=== PATIENT | female | born 1945 | race Caucasian/White ===

== ENCOUNTER 2018-11-17 16:52 | Emergency (ER) | payer MEDICARE, OTHER ==
[2018-11-17 17:17] VITALS: O2SAT 97
[2018-11-17] MEDS ORDERED: NORCO 5/325 MG PO ONE (17:19)
[2018-11-17] MEDS ORDERED: NORCO 5/325 MG ONE (17:22)
--- NOTE | 2018-11-17 17:24 | ERPHSYRPT ---
- History of Present Illness Time Seen by Provider: 11/17/18 17:20 Source: patient Exam Limitations: no limitations Patient Subjective Stated Complaint: patient states tripped over leg of jewelry box this am and fell against corner of dresser injuring right rib area. Triage Nursing Assessment: ambulated to room per self guarding right rib area. skin w/d, color normal, resp shallow but nonlabored. small bruise noted to right lateral rib area. ice applied. Physician History: 73-year-old white female arrives with complaint of pain in her posterior right ribs with breathing and moving symptoms since 11:30. She states she tripped and struck her right ribs She is having pain in the right posterior ribs and lateral ribs worse with moving and breathing she is not short of breath. Past medical history includes hypercholesterolemia, high blood pressure, osteoporosis, breast cancer, herniated disc. Past surgical history includes right ankle replacement Timing/Duration: today (11:30 AM) Severity: moderate Modifying Factors: Improves With: movement, other (breathing) Associated Symptoms: other (pain right posterior ribs), No nausea, No vomiting, No abdominal pain, No shortness of breath, No heartburn, No diaphoresis, No cough, No chills, No chest pain, No fever, No headaches, No loss of appetite, No malaise, No rash, No syncope, No seizure, No weakness Allergies/Adverse Reactions: Penicillins Allergy (Unknown, Verified 11/17/18 17:14) Sulfa (Sulfonamide Antibiotics) Allergy (Unknown, Verified 10/04/15 01:58) Home Medications: Aspirin 81 mg PO DAILY 10/04/15 [History] Diclofenac Sodium 50 mg [Voltaren 50 mg] 75 mg PO DAILY 10/04/15 [History] Hydrochlorothiazide 25 mg [hydroDIURIL 25 MG] 25 mg PO DAILY 10/04/15 [ History] Levothyroxine Sodium 50 Mcg [Synthroid 50 Mcg] 50 mcg PO DAILY 10/04/15 [ History] Melatonin/Pyridoxine HCl (B6) [Melatonin 5 mg Tablet] 1 tab PO HS 10/04/15 [ History] Metoprolol Tartrate 100 mg PO DAILY 10/04/15 [History] Mv-Min/FA/Vit K/Lycop/Lut/Zeax [Ocuvite Eye + Multi Tablet] 1 cap PO DAILY 10/03 [History] Gabapentin 300 mg PO HS 11/17/18 [History] hydroCHLOROthiazide [Hydrochlorothiazide] 25 mg PO DAILY 11/17/18 [History] Hx Tetanus, Diphtheria Vaccination/Date Given: No Hx Influenza Vaccination/Date Given: No Hx Pneumococcal Vaccination/Date Given: No - Review of Systems Constitutional: No Fever, No Chills Eyes: No Symptoms Ears, Nose, & Throat: No Symptoms Respiratory: No Cough, No Dyspnea Cardiac: No Chest Pain, No Edema, No Syncope Abdominal/Gastrointestinal: No Abdominal Pain, No Nausea, No Vomiting, No Diarrhea Genitourinary Symptoms: No Symptoms, No Dysuria Musculoskeletal: Back Pain (pain right posterior ribs) Skin: No Rash Neurological: No Dizziness, No Focal Weakness, No Sensory Changes Psychological: No Symptoms Endocrine: No Symptoms All Other Systems: Reviewed and Negative - Past Medical History Pertinent Past Medical History: Yes Neurological History: No Pertinent History ENT History: No Pertinent History Cardiac History: Hypertension Respiratory History: No Pertinent History Endocrine Medical History: Hypothyroidism Musculoskeletal History: Arthritis GI Medical History: No Pertinent History History: No Pertinent History Psycho-Social History: No Pertinent History Female Reproductive Disorders: Breast Cancer Other Medical History: R TAA - Past Surgical History Past Surgical History: Yes Neuro Surgical History: No Pertinent History Cardiac: No Pertinent History Respiratory: No Pertinent History Gastrointestinal: No Pertinent History Genitourinary: No Pertinent History Musculoskeletal: Orthopedic Surgery, Other Female Surgical History: No Pertinent History Other Surgical History: RIGHT ANKLE REPLACEMENT - Social History Smoking Status: Never smoker Exposure to second hand smoke: No Drug Use: none Patient Lives Alone: No - Female History Hx Now: No - Nursing Vital Signs Nursing Vital Signs: Initial Vital Signs Temperature 97.5 F 11/17/18 17:04 Pulse Rate 64 11/17/18 17:04 Respiratory Rate 16 11/17/18 17:04 Blood Pressure 175/78 11/17/18 17:04 O2 Sat by Pulse Oximetry 97 11/17/18 17:04 Pain Scale Pain Intensity 8 - Physical Exam General Appearance: mild distress, alert Eye Exam: PERRL/EOMI, eyes nml inspection Ears, Nose, Throat Exam: normal ENT inspection, TMs normal, pharynx normal, moist mucous membranes Neck Exam: normal inspection, non-tender, supple, full range of motion Respiratory Exam: normal breath sounds, lungs clear, No respiratory distress Cardiovascular Exam: regular rate/rhythm, normal heart sounds, normal peripheral pulses, capillary refill <2 sec Gastrointestinal/Abdomen Exam: soft, normal bowel sounds, No tenderness, No mass Back Exam: other (pain in right posterior ribs with palpation and movement) Extremity Exam: normal inspection, normal range of motion, pelvis stable Neurologic Exam: alert, oriented x 3, cooperative, 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, normal mood/affect, nml cerebellar function, nml station & gait, sensation nml, No motor deficits Skin Exam: normal color, warm, dry, other (small ecchymosis right lateral abdomen nontender), No rash Lymphatic Exam: No adenopathy SpO2 Interpretation: normal (97%) SpO2: 97 - Course Nursing assessment & vital signs reviewed: Yes - Radiology Exams Right Ribs X-ray Interpretation: Interpreted by me (no fractures) Chest X-ray Interpretation: Interpreted by me (no acute disease process, no rib fractures, no pneumothorax) Ordered Tests: Active Orders 24 hr Category Date Time Status CHEST 1 VIEW (PORTABLE) Stat Exams 11/17/18 17:20 Taken RIBS UNILATERAL Stat Exams 11/17/18 17:43 Taken Medication Summary Discontinued Medications Generic Name Dose Route Start Last Admin Trade Name Yonatan PRN Reason Stop Dose Admin Hydrocodone Bitart/Acetaminophen 1 tab 11/17/18 17:19 11/17/18 17:23 [place] 5/325 Mg PO 11/17/18 17:20 1 tab STAT ONE Administration Hydrocodone Bitart/Acetaminophen Confirm 11/17/18 17:22 [place] 5/325 Mg Administered 11/17/18 17:23 Dose 1 tab .ROUTE .STK-MED ONE - Progress Progress: improved Progress Note: 11/17/18 17:58 Patient feeling better after [place] 5/325 one orally. X-ray right ribs no fractures (my read and ). X-ray chest no acute disease process, no fractures, no pneumothorax (my read). Will discharge patient with [place] for pain. - Departure Departure Disposition: Home Clinical Impression: Accidental fall Qualifiers: Encounter type: initial encounter Qualified Code(s): W19.XXXA - Unspecified fall, initial encounter Contusion of rib on right side Qualifiers: Encounter type: initial encounter Qualified Code(s): S20.211A - Contusion of right front wall of thorax, initial encounter Condition: Fair Critical Care Time: No Referrals: [place] GRIG[facility] [Primary Care Provider] - Instructions: Bruised Rib Additional Instructions: Return home. Cold packs to area 24-48 hours. [place] as prescribed. Followup with your family Dr. if symptoms are worse, no better in 48 hours, or persist longer than one week. Return for acute distress severe symptoms or for any problems. Prescriptions: Hydrocodone/APAP 5-325 Tab^^^ [[place] 5-325 Tablet^^^] 1 each PO Q4HPRN PRN #12 tablet MDD 6 PRN Reason: rib pain
[2018-11-17 18:04] VITALS: BP 167/75; PULSE 57
--- NOTE | 2018-11-18 08:58 | XRAY ---
Indication: Pain following injury. History of breast cancer. Comparison: None 2 views of the right ribs demonstrates nondisplaced fracture lateral arc of the 6th rib. Elsewhere mild multilevel degenerative spondylosis, moderate right AC degenerative arthropathy, and minimal double curvature thoracolumbar scoliosis. Chest reported separately. Comment: Fracture not reported on preliminary interpretation by the ER clinician. Telephone report given to Dr. Curran at 0853 hrs. on November 18, 2018.
--- NOTE | 2018-11-18 09:00 | XRAY ---
Indication: Right-sided chest pain following injury. Comparison: February 05, 2012. PA/lateral chest again demonstrates normal heart and lungs with focal eventration of the right hemidiaphragm. Bony thorax intact again with mild degenerative changes and minimal scoliosis. Right ribs reported separately.
== END 2018-11-17 18:10 | disposition home or self-care (01) ==
LOC: ED 16:52
DX: S20.211A Contusion of right front wall of thorax, initial encounter (principal); W01.190A Fall on same level from slipping, tripping and stumbling with subsequent striking against furniture, initial encounter
CPT/HCPCS: 71045; 71100; 99284; A9270-GY

== ENCOUNTER 2018-12-14 20:33 | Emergency (ER) | payer MEDICARE, OTHER ==
[2018-12-14] MEDS ORDERED: Sodium Chloride 0.9% 1000 ML 0 ML ONE (21:30)
--- NOTE | 2018-12-14 21:30 | ERPHSYRPT ---
- History of Present Illness Time Seen by Provider: 12/14/18 21:10 Historian: patient Patient Subjective Stated Complaint: pt reports abd pain starting today around 1530. pt states she had been constipated prior to today for a couple days and took some miralax this morning. pt states she had diarrhea 3-4 times today with chills around 1530 as well. pt reports pain to the lower abdomen as well as a churning sensation. pt reports she feels better after having a bowel movement. Triage Nursing Assessment: pt is aox3, pupils perrl, afebrile, resps easy and non labored, radial pulses strong and equal, cap refill < 3 seconds, abd soft, tender to the lower quadrants, bowel sounds present normoactive x4, pt skin pink warm dry. Physician History: right upper abdominal pain that began in the morning of 12/14/2018. Timing/Duration: today Activities at Onset: none Quality: aching, stabbing Abdominal Pain Onset Location: RUQ Pain Radiation: flank Severity of Pain-Max: severe Severity of Pain-Current: mild Modifying Factors: Improves With: nothing Associated Symptoms: No back, No chest pain, No diaphoresis, No diarrhea, No fever/chills, No fatigue, No headache, No heartburn, No loss of appetite, No nausea, No neck pain, No rash, No shortness of breath, No syncope, No vomiting, No weakness Previous symptoms: no prior history Allergies/Adverse Reactions: Penicillins Allergy (Unknown, Verified 11/17/18 17:14) Sulfa (Sulfonamide Antibiotics) Allergy (Unknown, Verified 10/04/15 01:58) Home Medications: Aspirin 81 mg PO DAILY 10/04/15 [History] Diclofenac Sodium 50 mg [Voltaren 50 mg] 75 mg PO DAILY 10/04/15 [History] Hydrochlorothiazide 25 mg [hydroDIURIL 25 MG] 25 mg PO DAILY 10/04/15 [ History] Levothyroxine Sodium 50 Mcg [Synthroid 50 Mcg] 50 mcg PO DAILY 10/04/15 [ History] Melatonin/Pyridoxine HCl (B6) [Melatonin 5 mg Tablet] 1 tab PO HS 10/04/15 [ History] Metoprolol Tartrate 100 mg PO DAILY 10/04/15 [History] Mv-Min/FA/Vit K/Lycop/Lut/Zeax [Ocuvite Eye + Multi Tablet] 1 cap PO DAILY 10/03 [History] Gabapentin 300 mg PO HS 11/17/18 [History] hydroCHLOROthiazide [Hydrochlorothiazide] 25 mg PO DAILY 11/17/18 [History] Hx Tetanus, Diphtheria Vaccination/Date Given: No Hx Influenza Vaccination/Date Given: No Hx Pneumococcal Vaccination/Date Given: No Immunizations Up to Date: Yes - Review of Systems Constitutional: No Fever, No Chills Eyes: No Symptoms Ears, Nose, & Throat: No Symptoms Respiratory: No Cough, No Dyspnea Cardiac: No Chest Pain, No Edema, No Syncope Abdominal/Gastrointestinal: Abdominal Pain, Constipation, No Nausea, No Vomiting , No Diarrhea, No Hematemesis, No Hematochezia, No Melena Genitourinary Symptoms: No Dysuria, No Frequency, No Hematuria, No Flank Pain Musculoskeletal: No Back Pain, No Neck Pain Skin: No Rash Neurological: No Dizziness, No Focal Weakness, No Sensory Changes Psychological: No Symptoms Endocrine: No Symptoms Hematologic/Lymphatic: No Easy Bleeding, No Easy Bruising All Other Systems: Reviewed and Negative - Past Medical History Pertinent Past Medical History: Yes Neurological History: No Pertinent History ENT History: No Pertinent History Cardiac History: Hypertension Respiratory History: No Pertinent History Endocrine Medical History: Hypothyroidism Musculoskeletal History: Arthritis GI Medical History: No Pertinent History History: No Pertinent History Psycho-Social History: No Pertinent History Female Reproductive Disorders: Breast Cancer Other Medical History: R TAA - Past Surgical History Past Surgical History: Yes Neuro Surgical History: No Pertinent History Cardiac: No Pertinent History Respiratory: No Pertinent History Gastrointestinal: No Pertinent History Genitourinary: No Pertinent History Musculoskeletal: Orthopedic Surgery, Other Female Surgical History: No Pertinent History Other Surgical History: RIGHT ANKLE REPLACEMENT - Social History Smoking Status: Never smoker Exposure to second hand smoke: No Drug Use: none Patient Lives Alone: No - Female History Hx Now: No - Nursing Vital Signs Nursing Vital Signs: Initial Vital Signs Temperature 97.9 F 12/14/18 20:50 Pulse Rate 78 12/14/18 20:50 Respiratory Rate 12/14/18 20:50 Blood Pressure 124/60 12/14/18 20:50 O2 Sat by Pulse Oximetry 95 12/14/18 20:50 Pain Scale Pain Intensity 8 - Physical Exam General Appearance: no apparent distress, alert Eye Exam: PERRL/EOMI, eyes nml inspection Ears, Nose, Throat Exam: normal ENT inspection, pharynx normal, moist mucous membranes Neck Exam: normal inspection, non-tender, supple, full range of motion Respiratory Exam: normal breath sounds, lungs clear, No respiratory distress Cardiovascular Exam: regular rate/rhythm, normal heart sounds Gastrointestinal/Abdomen Exam: soft, tenderness (left lower quadrant has positive tenderness; mild right upper quadrant tenderness to palpation), No mass , No pulsatile mass, No hernia Back Exam: normal inspection, normal range of motion, No CVA tenderness, No vertebral tenderness Extremity Exam: normal inspection, normal range of motion, pelvis stable Neurologic Exam: alert, oriented x 3, cooperative, normal mood/affect, nml cerebellar function, sensation nml, No motor deficits Skin Exam: normal color, warm, dry, No rash, No ecchymosis SpO2 Interpretation: normal SpO2: 95 O2 Delivery: Room Air - Course Nursing assessment & vital signs reviewed: Yes EKG Interpreted by Me: RATE (74), Sinus Rhythm, NORMAL AXIS, NORMAL INTERVALS, NORMAL ST-T - CT Exams Abdomen/Pelvis CT Interpretation: No appendicitis, Other (right distal ureter 5.3 mm calculus with moderate hydronephrosis and hydroureter. Pain effort edema bilaterally suggestive of renal insufficiency. Stomach and bowel: Unremarkable. No extraction. No mucosal thickening. No splenomegaly. No calcified stones or ductal dilatation in the gallbladder and bile ducts. Liver normal. Stomach and bowel: No extraction. No mucosal thickening. Vascular: Unremarkable. No abdominal aortic aneurysm. 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 21:49 Active EKG-ER Only STAT Care 12/14/18 21:49 Active ABDOMEN AND PELVIS W CONTRAST [CT] Stat Exams 12/14/18 21:22 Ordered ABDOMEN AND PELVIS W/0 CONTRAS [CT] Stat Exams 12/14/18 22:31 Taken AMYLASE Stat Lab 12/14/18 21:21 Completed CBC W DIFF Stat Lab 12/14/18 21:21 Completed CMP Stat Lab 12/14/18 21:21 Completed CULTURE,URINE Stat Lab 12/14/18 23:52 Received LIPASE Stat Lab 12/14/18 21:21 Completed Lactic Acid Stat Lab 12/14/18 21:21 Ordered TROPONIN Q3H Lab 12/14/18 22:00 Completed UA W/RFX UR CULTURE Stat Lab 12/14/18 23:52 Completed Medication Summary Discontinued Medications Generic Name Dose Route Start Last Admin Trade Name Yonatan PRN Reason Stop Dose Admin Sodium Chloride 1,000 mls @ 999 mls/hr 12/14/18 21:21 12/15/18 00:00 Sodium Chloride 0.9% 1000 Ml IV 12/14/18 22:21 Infused .Q1H1M STA Infusion Sodium Chloride Confirm 12/14/18 21:30 Sodium Chloride 0.9% 1000 Ml Administered 12/14/18 21:31 Dose 1,000 mls @ ud .ROUTE .STK-MED ONE Sodium Chloride Confirm 12/14/18 23:05 Sodium Chloride 0.9% 1000 Ml Administered 12/14/18 23:06 Dose 1,000 mls @ ud .ROUTE .STK-MED ONE Ceftriaxone Sodium/Dextrose 1 g in 50 mls @ 100 mls/hr 12/15/18 00:52 01:07 Rocephin 1 Gm-D5w 50 Ml Bag IV 12/15/18 01:21 100 mls/hr STAT STA 100 mls/hr Administration Ceftriaxone Sodium/Dextrose Confirm 12/15/18 01:02 Rocephin 1 Gm-D5w 50 Ml Bag Administered 12/15/18 01:03 Dose 1 g in 50 mls @ ud IV .STK-MED ONE Morphine Sulfate 4 mg 12/15/18 00:58 12/15/18 01:06 Morphine Sulfate 4 Mg Inj IV 12/15/18 00:59 4 mg STAT ONE Administration Morphine Sulfate Confirm 12/15/18 01:02 Morphine Sulfate 4 Mg Inj Administered 12/15/18 01:03 Dose 4 mg .ROUTE .STK-MED ONE Lab/Rad Data: Laboratory Result Diagrams 12/14/18 21:21 12/14/18 21:21 Laboratory Results 12/14/18 12/14/18 12/14/18 Range/Units 23:52 22:00 21:21 WBC (4.0-10.5) K/mm3 RBC (4.1-5.4) M/mm3 Hgb (12.0-16.0) gm/dl Hct (35-47) % MCV (78-100) fl MCH (26-32) pg MCHC (32-36) g/dl RDW (11.5-14.0) % Plt Count (150-450) K/mm3 MPV (6-9.5) fl Gran % (36.0-66.0) % Eos # (Auto) (0-0.5) Absolute Lymphs (auto) (1.0-4.6) Absolute Monos (auto) (0.0-1.3) Lymphocytes % (24.0-44.0) % Monocytes % (0.0-12.0) % Eosinophils % (0.00-5.0) % Basophils % (0.0-0.4) % Absolute Granulocytes (1.4-6.9) Basophils # (0-0.4) Sodium 136 L (137-145) mmol/L Potassium 3.2 L (3.5-5.1) mmol/L Chloride 102 (98-107) mmol/L Carbon Dioxide 25 (22-30) mmol/L Anion Gap 11.7 (5-15) MEQ/L BUN 25 H (7-17) mg/dL Creatinine 1.30 H (0.52-1.04) mg/dL Estimated GFR 42.7 ML/MIN Glucose 108 H (74-106) mg/dL Calcium 9.8 (8.4-10.2) mg/dL Total Bilirubin 0.90 (0.2-1.3) mg/dL AST 46 H (14-36) U/L ALT 41 H (0-35) U/L Alkaline Phosphatase 77 (38-126) U/L Troponin I < 0.012 (0.000-0.034) ng/mL Serum Total Protein 6.8 (6.3-8.2) g/dL Albumin 3.8 (3.5-5.0) g/dL Amylase 59 (30-110) U/L Lipase 81 (23-300) U/L Urine Color YELLOW (YELLOW) Urine Appearance CLOUDY (CLEAR) Urine pH 5.0 (5-6) Ur Specific [place] 1.015 (1.005-1.025) Urine Protein 100 (Negative) Urine Ketones TRACE (NEGATIVE) Urine Blood LARGE (0-5) Kyle/ul Urine Nitrite POSITIVE (NEGATIVE) Urine Bilirubin NEGATIVE (NEGATIVE) Urine Urobilinogen NEGATIVE (0-1) mg/dL Ur Leukocyte Esterase LARGE (NEGATIVE) Urine WBC (Auto) >100 (0-5) /HPF Urine RBC (Auto) >101 (0-2) /HPF U Epithel Cells (Auto) RARE (FEW) /HPF Urine Bacteria (Auto) MANY (NEGATIVE) /HPF Urine Culture Reflexed YES (NO) Urine Glucose NEGATIVE (NEGATIVE) mg/dL 12/14/18 Range/Units 21:21 WBC 17.5 H (4.0-10.5) K/mm3 RBC 4.04 L (4.1-5.4) M/mm3 Hgb 12.9 (12.0-16.0) gm/dl Hct 40.2 (35-47) % MCV 99.5 (78-100) fl MCH 31.9 (26-32) pg MCHC 32.1 (32-36) g/dl RDW 13.1 (11.5-14.0) % Plt Count 181 (150-450) K/mm3 MPV 9.9 H (6-9.5) fl Gran % 86.5 H (36.0-66.0) % Eos # (Auto) 0.04 (0-0.5) Absolute Lymphs (auto) 0.86 L (1.0-4.6) Absolute Monos (auto) 1.43 H (0.0-1.3) Lymphocytes % 4.9 L (24.0-44.0) % Monocytes % 8.2 (0.0-12.0) % Eosinophils % 0.2 (0.00-5.0) % Basophils % 0.2 (0.0-0.4) % Absolute Granulocytes 15.13 H (1.4-6.9) Basophils # 0.03 (0-0.4) Sodium (137-145) mmol/L Potassium (3.5-5.1) mmol/L Chloride (98-107) mmol/L Carbon Dioxide (22-30) mmol/L Anion Gap (5-15) MEQ/L BUN (7-17) mg/dL Creatinine (0.52-1.04) mg/dL Estimated GFR ML/MIN Glucose (74-106) mg/dL Calcium (8.4-10.2) mg/dL Total Bilirubin (0.2-1.3) mg/dL AST (14-36) U/L ALT (0-35) U/L Alkaline Phosphatase (38-126) U/L Troponin I (0.000-0.034) ng/mL Serum Total Protein (6.3-8.2) g/dL Albumin (3.5-5.0) g/dL Amylase (30-110) U/L Lipase (23-300) U/L Urine Color (YELLOW) Urine Appearance (CLEAR) Urine pH (5-6) Ur Specific [place] (1.005-1.025) Urine Protein (Negative) Urine Ketones (NEGATIVE) Urine Blood (0-5) Kyle/ul Urine Nitrite (NEGATIVE) Urine Bilirubin (NEGATIVE) Urine Urobilinogen (0-1) mg/dL Ur Leukocyte Esterase (NEGATIVE) Urine WBC (Auto) (0-5) /HPF Urine RBC (Auto) (0-2) /HPF U Epithel Cells (Auto) (FEW) /HPF Urine Bacteria (Auto) (NEGATIVE) /HPF Urine Culture Reflexed (NO) Urine Glucose (NEGATIVE) mg/dL - Progress Progress Note: 12/15/18 00:57 Pain is returning. Patient will be given Morphine 4mg IV times one and Rocephin 1 gm IV times one for the UTI seen on the urinalysis - Departure Departure Disposition: Home Clinical Impression: Renal colic on right side, RUQ abdominal pain, Ureterolithiasis, MIGUEL ANGEL (acute kidney injury), Hydroureter on right, Hypokalemia Condition: Good Critical Care Time: No Referrals: [place] [facility] [Primary Care Provider] - 12/16/18 Instructions: Kidney Stones in Adults, Renal Colic (DC), Acute Abdomen (Belly Pain), Kidney Failure (DC), Urinary Tract Infection, Adult (DC), Hydronephrosis , Adult (DC), Hypokalemia (DC) Additional Instructions: return immediately back to the emergency Department if any worse pain, decreased urination, new fevers, worsening abdominal pain, or any other concerning signs or symptoms for immediate reevaluation in the emergency department. Prescriptions: Oxycodone HCl/Acetaminophen [Percocet 5-325 mg Tablet] 1 each PO Q6H PRN PRN # 10 tablet MDD 4 PRN Reason: Pain Cefuroxime Axetil [Cefuroxime] 250 mg PO BID #14 tablet Tamsulosin HCl 0.4 mg [Flomax 0.4 MG] 0 mg PO DAILY #10 cap
[2018-12-14 22:11] LABS: BASOPHIL % 0.2 % (0.0-0.4); Basophil (Absolute #) 0.03 (0-0.4); Eosinophil % 0.2 % (0.00-5.0); Eosinophil (Absolute #) 0.04 (0-0.5); Granulocyte Absolute (ANC) 15.13 (1.4-6.9); Granulocytes % 86.5 % (36.0-66.0); Hematocrit 40.2 % (35-47); Hemoglobin 12.9 gm/dl (12.0-16.0); Lymphocyte (Absolute #) 0.86 (1.0-4.6); Lymphocytes % 4.9 % (24.0-44.0); Mean Cell Volume 99.5 fl (78-100); Mean Corpuscular Hemoglobin 31.9 pg (26-32); Mean Corpuscular Hgb Concent. 32.1 g/dl (32-36); Mean Platelet Volume 9.9 fl (6-9.5); Monocyte (Absolute #) 1.43 (0.0-1.3); Monocytes % 8.2 % (0.0-12.0); Platelet Count 181 K/mm3 (150-450); Red Blood Count 4.04 M/mm3 (4.1-5.4); Red Cell Distribution Width 13.1 % (11.5-14.0); White Blood Count 17.5 K/mm3 (4.0-10.5)
[2018-12-14 22:21] LABS: ALBUMIN 3.8 g/dL (3.5-5.0); ANION GAP 11.7 MEQ/L (5-15); BILIRUBIN,TOTAL 0.9 mg/dL (0.2-1.3); Calcium 9.8 mg/dL (8.4-10.2); Creatinine 1 1.3 mg/dL (0.52-1.04); Potassium 3.2 mmol/L (3.5-5.1); Total Protein 6.8 g/dL (6.3-8.2)
[2018-12-14] MEDS ORDERED: Sodium Chloride 0.9% 1000 ML 1,000 ML ONE (23:05)
[2018-12-14] MEDS: Sodium Chloride 0.9% 1000 ML 1,000 ML IV STA (23:06)
[2018-12-15 00:43] LABS: Appearance CLOUDY (CLEAR); Bacteria MANY /HPF (NEGATIVE); Bilirubin NEGATIVE (NEGATIVE); Blood LARGE Ery/ul (0-5); Epithelial Cells RARE /HPF (FEW); Glucose NEGATIVE (NEGATIVE); Ketones TRACE (NEGATIVE); Leukocyte Esterase LARGE (NEGATIVE); Nitrite POSITIVE (NEGATIVE); Protein,Urine Dip 100 (Negative); Specific Gravity 1.015 (1.005-1.025); Urobilinogen NEGATIVE mg/dL (0-1); WBC >100 /HPF (0-5)
[2018-12-15 00:45] LABS: RBC >101 /HPF (0-2)
[2018-12-15] MEDS ORDERED: ROCEPHIN 1 Gm-D5w 50 ml Bag** 1 G/50 ML IVPB IV ONE (01:02)
[2018-12-15] MEDS ORDERED: MORPHINE SULFATE 4 MG INJ ONE (01:02)
[2018-12-15] MEDS: MORPHINE SULFATE 4 MG INJ IV ONE (01:06)
[2018-12-15] MEDS: ROCEPHIN 1 Gm-D5w 50 ml Bag** 1 G/50 ML IVPB IV STA (01:07)
[2018-12-15] MEDS ORDERED: Klor Con 10 MEQ PO ONE (01:40)
[2018-12-15] MEDS: Klor Con 10 MEQ PO ONE (01:43)
[2018-12-15 02:01] VITALS: BP 107/57; PULSE 74; O2SAT 97
--- NOTE | 2018-12-15 09:05 | XRAY ---
Indication: Abdomen pain. Multiple contiguous axial images obtained through the abdomen and pelvis without contrast as ordered. Comparison: None Lung bases demonstrates minimal dependent atelectasis. No infiltrate or effusion. Heart is not enlarged. Noncontrasted stomach and bowel loops appear nonobstructed. Normal appendix. There is a 5-6 mm distal right ureter calculus approximately 3 cm proximal to the UVJ. Proximal right ureter is prominent up to 1.3 cm with mild hydronephrosis and perinephric stranding consistent with obstructive uropathy. Left kidney demonstrates minimal nonspecific perinephric stranding. Remaining liver, gallbladder, pancreas, spleen, adrenal glands, left ureter, bladder, and uterus appear unremarkable for noncontrast exam. Mild scattered aortoiliac calcifications without AAA. Osseous structures intact with mild degenerative changes throughout the thoracolumbar spine including 3-4 mm L4 anterolisthesis. Small fatty right inguinal hernia. Impression: 1. 5-6 mm distal right ureter calculus producing obstructive uropathy as detailed. 2. Multilevel degenerative spondylosis including grade 1 L4 spondylolisthesis. 3. Small fatty right inguinal hernia. Comment: Preliminary interpretation was made by [facility]. No critical discrepancy. CT DI 23.45
== END 2018-12-15 01:55 | disposition home or self-care (01) ==
LOC: ED 20:33
DX: N23 Unspecified renal colic (principal); R10.11 Right upper quadrant pain; N20.1 Calculus of ureter; N17.9 Acute kidney failure, unspecified; N13.4 Hydroureter; E87.6 Hypokalemia
CPT/HCPCS: 36000; 36415; 74176; 80053; 81001; 82150; 83690; 84484; 85025; 87077; 87086; 87186; 93005; 93041; 96360; 96365; 96374; 99284; J0696; J2270; A9270-GY

== ENCOUNTER 2019-12-13 10:30 | Day surgery (SDC) | payer MEDICARE, OTHER ==
[2019-12-13] MEDS ORDERED: Depo-Medrol 40 MG/ML IM ONE (10:31)
[2019-12-13] MEDS ORDERED: Decadron 4 MG INJ IV ONE (10:31)
[2019-12-13] MEDS ORDERED: BUPIVACAINE 0.5% VIAL IJ ONE (10:31)
[2019-12-13] MEDS ORDERED: Xylocaine 1% Vial 30 ML PF IJ ONE (10:31)
[2019-12-13] MEDS ORDERED: Ketamine HCl 50 MG/ML ONE (12:42)
[2019-12-13] MEDS ORDERED: DIPRIVAN 200 MG/20 ML IV ONE (12:42)
--- NOTE | 2019-12-13 14:07 | XRAY ---
23 seconds fluoroscopy time in surgery for left SI joint and piriformis muscle injections.
--- NOTE | 2019-12-13 14:18 | XRAY ---
Indication: Left SI joint and piriformis muscle injections. Intraoperative fluoroscopy was provided for 23 seconds. 3 digital spot images submitted for interpretation demonstrates posterior needle tip projecting over the inferior left SI joint. A second needle tip projects over the expected left piriformis muscle with small amount of contrast injected for needle tip placement. Correlate with intraoperative findings/report.
[2019-12-13] MEDS ORDERED: Lactated Ringers 1,000 ML IV ONE (15:30)
== END 2019-12-13 13:10 | disposition home or self-care (01) ==
LOC: SDC-PAIN 10:30
PROVIDERS: ATTEND Psychiatry & Neurology Pain Medicine
DX: M46.1 Sacroiliitis, not elsewhere classified (principal); M79.18 Myalgia, other site; Z79.899 Other long term (current) drug therapy
CPT/HCPCS: 20552; 72202; 77002; G0260; 27096; 99100; J1030; J1100; J2001; J2704; Q9966

== ENCOUNTER 2020-07-24 11:44 | Day surgery (SDC) | payer MEDICARE, OTHER ==
[2020-07-24] MEDS ORDERED: BUPIVACAINE 0.5% VIAL IJ ONE (11:45)
[2020-07-24] MEDS ORDERED: Decadron 4 MG INJ IV ONE (11:45)
[2020-07-24] MEDS ORDERED: Xylocaine 1% Vial 30 ML PF IJ ONE (11:45)
[2020-07-24] MEDS ORDERED: Depo-Medrol 40 MG/ML IM ONE (11:45)
[2020-07-24] MEDS ORDERED: DIPRIVAN 200 MG/20 ML IV ONE (13:50)
[2020-07-24] MEDS ORDERED: Lactated Ringers 1,000 ML IV ONE (16:11)
--- NOTE | 2020-07-24 16:41 | XRAY ---
Indication: Left SI joint and left piriformis injections. Intraoperative fluoroscopy provided for 51 seconds. 4 digital spot images submitted for interpretation demonstrates posterior needle tip projecting over the inferior left SI joint. Second needle tip projects over the expected left piriformis muscle with small amount of contrast injected for needle tip placement. Correlate with intraoperative findings/report.
== END 2020-07-24 14:21 | disposition home or self-care (01) ==
LOC: SDC-PAIN 11:44
PROVIDERS: ATTEND Psychiatry & Neurology Pain Medicine
DX: M46.1 Sacroiliitis, not elsewhere classified (principal); M79.18 Myalgia, other site; Z85.3 Personal history of malignant neoplasm of breast; Z79.899 Other long term (current) drug therapy
CPT/HCPCS: 20552; 27096; 72202; 77002; G0260; 99100; J1030; J1100; J2001; J2704; Q9966

== ENCOUNTER 2021-09-29 01:18 | Emergency (ER) | payer MEDICARE, OTHER ==
[2021-09-29 01:39] VITALS: O2SAT 97
[2021-09-29] MEDS ORDERED: NORCO 5/325 MG PO ONE ×2 (01:50→01:58)
[2021-09-29] MEDS ORDERED: NORCO 5/325 MG ONE ×2 (01:52→02:01)
--- NOTE | 2021-09-29 01:56 | ERPHSYRPT ---
- History of Present Illness Time Seen by Provider: 09/29/21 01:50 Source: patient Exam Limitations: no limitations Patient Subjective Stated Complaint: pt states "My back has been hurting lately and I go and see the pain clinic here for it. Tonight it has been intense and it is shooting down to my buttocks and down my right leg" Triage Nursing Assessment: Pt ambulatory to cot by self, pt alert and oriented x3, pt c/o mostly R sided chronic low back pain, pt took 2 aleve around 1245 am that has helped some, pt stated it shoots down to my buttocks and R leg too Physician History: 76-year-old female with history of chronic low back pain scheduled to see pain management this week presented in the ER with low back pain continuous since evening. Patient reports pain in the right sacroiliac area with radiation to r ight buttock and upper leg. Patient took 2 Aleve prior to arrival and on presentation/before I saw patient her pain is much more improved and currently having minimal pain in the low back. No numbness or weakness of lower extremity. No loss of bowel or bladder control. Timing/Duration: week(s), intermittent, resolved prior to arrival, improved Method of Injury: unknown Quality: sharp Back Pain Location: paraspinous muscles Back Pain Radiation: buttocks, upper legs Severity of Pain-Max: moderate Severity of Pain-Current: mild Modifying Factors: Improves With: pain medication Associated Symptoms: lower back pain, No urinary incontinence, No loss of bowel control, No constipation, No problems urinating, No light-headedness, No numbness in legs/feet, No weakness, No sensory/motor loss Previous symptoms: same symptoms as today Allergies/Adverse Reactions: Penicillins Allergy (Unknown, Verified 09/29/21 01:26) Sulfa (Sulfonamide Antibiotics) Allergy (Unknown, Verified 09/29/21 01:26) Home Medications: Aspirin 81 mg PO DAILY 10/04/15 [History] Levothyroxine Sodium 50 Mcg [Synthroid 50 Mcg] 50 mcg PO DAILY 10/04/15 [History] Melatonin/Pyridoxine HCl (B6) [Melatonin 5 mg Tablet] 1 tab PO HS 10/04/15 [History] Metoprolol Tartrate 100 mg PO DAILY 10/04/15 [History] Gabapentin 300 mg PO HS 11/17/18 [History] hydroCHLOROthiazide [Hydrochlorothiazide] 25 mg PO DAILY 11/17/18 [History] Hx Tetanus, Diphtheria Vaccination/Date Given: Yes Hx Influenza Vaccination/Date Given: Yes Hx Pneumococcal Vaccination/Date Given: No Immunizations Up to Date: Yes Travel Risk - International Travel Have you traveled outside of the country in past 3 weeks: No - Coronavirus Screening Are you exhibiting any of the following symptoms?: No Close contact with a COVID-19 positive Pt in past 14-21 Days: No - Vaccine Status Have you recieved a Covid-19 vaccination: Yes 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 - Vaccination Dates Date of 2cond Vaccination (if applicable): unknown - Review of Systems Constitutional: No Symptoms Ears, Nose, & Throat: No Symptoms Respiratory: No Symptoms Cardiac: No Symptoms Abdominal/Gastrointestinal: No Symptoms Genitourinary Symptoms: No Symptoms Musculoskeletal: Arthralgias, Back Pain Skin: No Symptoms Neurological: No Symptoms Endocrine: No Symptoms Hematologic/Lymphatic: No Symptoms Immunological/Allergic: No Symptoms - Past Medical History Pertinent Past Medical History: Yes Neurological History: No Pertinent History ENT History: No Pertinent History Cardiac History: Hypertension Respiratory History: No Pertinent History Endocrine Medical History: Hypothyroidism Musculoskeletal History: Arthritis GI Medical History: No Pertinent History History: No Pertinent History Psycho-Social History: No Pertinent History Female Reproductive Disorders: Breast Cancer Other Medical History: R TAA - Past Surgical History Past Surgical History: Yes Neuro Surgical History: No Pertinent History Cardiac: No Pertinent History Respiratory: No Pertinent History Gastrointestinal: No Pertinent History Genitourinary: No Pertinent History Musculoskeletal: Orthopedic Surgery, Other Female Surgical History: No Pertinent History Other Surgical History: RIGHT ANKLE REPLACEMENT - Social History Smoking Status: Never smoker Exposure to second hand smoke: No Drug Use: none Patient Lives Alone: No - Nursing Vital Signs Nursing Vital Signs: Initial Vital Signs Temperature 97.9 F 09/29/21 01:27 Pulse Rate 63 09/29/21 01:27 Respiratory Rate 18 09/29/21 01:27 Blood Pressure 157/67 09/29/21 01:27 O2 Sat by Pulse Oximetry 97 09/29/21 01:27 Pain Scale Pain Intensity [Right Lower 5 Back] Pain Intensity 5 - Physical Exam General Appearance: no apparent distress, alert Neck Exam: normal inspection Respiratory Exam: normal breath sounds, lungs clear Cardiovascular Exam: regular rate/rhythm, normal heart sounds Gastrointestinal Exam: soft, normal bowel sounds, No tenderness Back Exam: normal inspection, normal range of motion, muscle spasm, point tenderness, No vertebral tenderness Extremity Exam: normal inspection (Right sacroiliac area. 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 No cauda equina symptoms. Negative neuro exam in lower extremities. Do not think needs any imaging or work-up and is recommended continue with outpatient follow-up pain management. Discussed signs symptoms of worsening needing return to ER which she seems understanding. 09/29/21 01:58 Counseled pt/family regarding: diagnosis, need for follow-up - Departure Departure Disposition: Home Clinical Impression: Low back pain Condition: Stable Critical Care Time: No Referrals: SUDHAKAR PRAKASH NP [Primary Care Provider] - Follow up/PCP as directed (1-2 days for re evaluation ) TULIO CROSS MD [CONSULTING PHYSICIAN] - Follow up/PCP as directed (as scheduled ) Instructions: Low Back Pain (DC), Sciatica (DC) Additional Instructions: Take Tylenol as needed for pain. Follow-up with primary care and pain management for reevaluation as scheduled. Return to ER for worsening pain or if having numbness tingling weakness of lower extremities/loss of bowel or bladder control.
[2021-09-29 02:13] VITALS: BP 127/65; PULSE 68
== END 2021-09-29 02:13 | disposition home or self-care (01) ==
LOC: ED 01:18
DX: M54.50 Low back pain, unspecified (principal); I10 Essential (primary) hypertension; Z79.899 Other long term (current) drug therapy
CPT/HCPCS: 99283; A9270-GY

== ENCOUNTER → 2021-10-08 | Day surgery (SDC) | payer MEDICARE, OTHER | LOC: SDC-PAIN 13:03 | PROVIDERS: ATTEND Psychiatry & Neurology Pain Medicine | DX: R41.82 Altered mental status, unspecified (principal); Z53.8 Procedure and treatment not carried out for other reasons; Z79.899 Other long term (current) drug therapy | CPT/HCPCS: 82947 ==

== ENCOUNTER 2021-10-31 12:57 | Emergency (ER) | payer MEDICARE, OTHER ==
[2021-10-31 13:15] VITALS: BP 178/75; PULSE 59; O2SAT 99
[2021-10-31] MEDS ORDERED: solu-MEDROL 125 MG, Sterile H2O 10 ml 2 ML IM ONE ×2 (13:28)
[2021-10-31] MEDS ORDERED: PERCOCET TABLET 5/325MG PO STA (13:28)
[2021-10-31] MEDS ORDERED: Norflex 100 MG Tablet PO ONE (13:28)
[2021-10-31] MEDS ORDERED: Sterile H2O 10 ml IJ ONE (13:30)
[2021-10-31] MEDS ORDERED: PERCOCET TABLET 5/325MG ONE (13:31)
[2021-10-31] MEDS ORDERED: solu-MEDROL ONE (13:31)
--- NOTE | 2021-10-31 13:42 | ERPHSYRPT ---
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 it is an ache. she does not have chest pain. she suffered no trauma. she does not have a cough or fever. denies soa Timing/Duration: day(s) (2) Severity: mild Associated Symptoms: denies symptoms Allergies/Adverse Reactions: Penicillins Allergy (Unknown, Verified 10/31/21 13:15) Sulfa (Sulfonamide Antibiotics) Allergy (Unknown, Verified 10/31/21 13:15) Home Medications: Aspirin 81 mg PO DAILY 10/04/15 [History] Levothyroxine Sodium 50 Mcg [Synthroid 50 Mcg] 50 mcg PO DAILY 10/04/15 [History] Melatonin/Pyridoxine HCl (B6) [Melatonin 5 mg Tablet] 1 tab PO HS 10/04/15 [History] Metoprolol Tartrate 100 mg PO DAILY 10/04/15 [History] Gabapentin 300 mg PO HS 11/17/18 [History] hydroCHLOROthiazide [Hydrochlorothiazide] 25 mg PO DAILY 11/17/18 [History] Clopidogrel Bisulfate [Clopidogrel] 75 mg PO DAILY 10/31/21 [History] Hx Tetanus, Diphtheria Vaccination/Date Given: Yes Hx Influenza Vaccination/Date Given: Yes Hx Pneumococcal Vaccination/Date Given: No Travel Risk - International Travel Have you traveled outside of the country in past 3 weeks: No - Coronavirus Screening Are you exhibiting any of the following symptoms?: No Close contact with a COVID-19 positive Pt in past 14-21 Days: No - Vaccine Status Have you recieved a Covid-19 vaccination: Yes Obstetrical Anesthesiologist: Moderna - Vaccination Dates Date of 2cond Vaccination (if applicable): unknown - Review of Systems Constitutional: No Symptoms Eyes: No Symptoms Ears, Nose, & Throat: No Symptoms Respiratory: No Symptoms Cardiac: No Symptoms Abdominal/Gastrointestinal: No Symptoms Genitourinary Symptoms: No Symptoms Musculoskeletal: Other Skin: No Symptoms, No Rash Neurological: No Symptoms Psychological: No Symptoms Endocrine: No Symptoms Hematologic/Lymphatic: No Symptoms Immunological/Allergic: No Symptoms All Other Systems: Reviewed and Negative - Past Medical History Pertinent Past Medical History: Yes Neurological History: No Pertinent History ENT History: No Pertinent History Cardiac History: Hypertension Respiratory History: No Pertinent History Endocrine Medical History: No Pertinent History Musculoskeletal History: Osteoarthritis GI Medical History: No Pertinent History History: No Pertinent History Psycho-Social History: No Pertinent History Female Reproductive Disorders: Breast Cancer Other Medical History: R TAA - Past Surgical History Past Surgical History: Yes Neuro Surgical History: No Pertinent History Cardiac: No Pertinent History Respiratory: No Pertinent History Gastrointestinal: No Pertinent History Genitourinary: No Pertinent History Musculoskeletal: Orthopedic Surgery, Other Female Surgical History: No Pertinent History Other Surgical History: RIGHT ANKLE REPLACEMENT - Social History Smoking Status: Never smoker Exposure to second hand smoke: No Drug Use: none Patient Lives Alone: No - Nursing Vital Signs Nursing Vital Signs: Initial Vital Signs Temperature 97.1 F 10/31/21 13:07 Pulse Rate 59 L 10/31/21 13:07 Blood Pressure 178/75 10/31/21 13:07 O2 Sat by Pulse Oximetry 99 10/31/21 13:07 Pain Scale Pain Intensity 7 - Physical Exam General Appearance: no apparent distress, alert, anxiety Eye Exam: PERRL/EOMI, eyes nml inspection Ears, Nose, Throat Exam: normal ENT inspection, moist mucous membranes Neck Exam: normal inspection, non-tender, supple, full range of motion Respiratory Exam: normal breath sounds, airway intact, other (left posterolateral rib margin tenderness. no rash or blistering. 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, normal mood/affect, nml cerebellar function, nml station & gait, sensation nml Skin Exam: normal color, warm, dry Lymphatic Exam: No adenopathy SpO2 Interpretation: normal SpO2: 99 O2 Delivery: Room Air - Course Nursing assessment & vital signs reviewed: Yes Ordered Tests: Active Orders 24 hr Category Date Time Status CHEST 2 VIEWS (PA AND LAT) Stat Exams 10/31/21 13:27 Completed Medication Summary Discontinued Medications Generic Name Dose Route Start Last Admin Trade Name Yonatan PRN Reason Stop Dose Admin Methylprednisolone Sodium 0 mg 10/31/21 13:28 10/31/21 13:34 Succinate 125 mg/ Sterile IM 10/31/21 13:29 125 mg Water 2 ml STAT ONE Administration Methylprednisolone Sodium Succinate Confirm 10/31/21 13:31 Methylprednis Sod Succ 125 Mg/2 Ml Vial Administered 10/31/21 13:32 Dose 125 mg .ROUTE .STK-MED ONE Orphenadrine Citrate 100 mg 10/31/21 13:28 10/31/21 13:39 Orphenadrine Citrate 100 Mg Er Tab PO 10/31/21 13:29 100 mg STAT ONE Administration Oxycodone/Acetaminophen 1 tab 10/31/21 13:28 10/31/21 13:33 Oxycodone Hcl/Apap 5 Mg/325 Mg Tablet PO 10/31/21 13:29 1 tab STAT STA Administration Oxycodone/Acetaminophen Confirm 10/31/21 13:31 Oxycodone Hcl/Apap 5 Mg/325 Mg Tablet Administered 10/31/21 13:32 Dose 1 tab .ROUTE .STK-MED ONE Sterile Water Confirm 10/31/21 13:30 Water For Injection,Sterile 10 Ml Vial Administered 10/31/21 13:31 Dose 10 ml IJ .STK-MED ONE - Progress Progress: improved, pain not gone completely, re-examined Progress Note: 10/31/21 13:44 medical decision making: we discussed writing an rx for acyclovir to be taken only if rash does appear. i think this is reasonable in order prevent a second er visit or additional visit to pcp. 10/31/21 13:52 cxr shows nonacute chest with chronic findings Counseled pt/family regarding: diagnosis, need for follow-up, rad results - Departure Departure Disposition: Home Clinical Impression: Rib pain on left side Condition: Stable Critical Care Time: No Referrals: SUDHAKAR PRAKASH NP [Primary Care Provider] - Follow up/PCP as directed Prescriptions: Oxycodone HCl/Acetaminophen [Percocet 5-325 mg Tablet] 1 each PO Q8H PRN PRN #6 tablet MDD 3 PRN Reason: Moderate To Severe Pain Acyclovir 800 mg [Acyclovir] 800 mg PO 5XD #35 tablet Prednisone 10 mg [Deltasone 10 mg] 10 mg PO TID #12 tablet
--- NOTE | 2021-10-31 13:47 | XRAY ---
Indication: Left chest pain. No known injury. Comparison: November 17, 2018. PA/lateral chest unchanged again demonstrating normal heart and lungs with chronic focal eventration right hemidiaphragm. Bony thorax intact again with mild osteopenia, degenerative changes, and minimal scoliosis. Impression: Continued nonacute chest with chronic features.
== END 2021-10-31 14:02 | disposition home or self-care (01) ==
LOC: ED 12:57
DX: R07.81 Pleurodynia (principal); I10 Essential (primary) hypertension; Z79.02 Long term (current) use of antithrombotics/antiplatelets; Z79.899 Other long term (current) drug therapy; Z79.891 Long term (current) use of opiate analgesic; Z79.52 Long term (current) use of systemic steroids
CPT/HCPCS: 71046; 96372; 99283; J2930; A9270-GY